=== PATIENT | female | born 1965 | race Caucasian/White ===

== ENCOUNTER 2020-04-03 09:08 | Day surgery (SDC) | payer BC ==
[~2020-04-03] VITALS: Ht 157.5 cm; Wt 63.2 kg
[~2020-04-03 09:08] MED LIST: (None)20 M1; ALBU90OI; CORTIZONE 1028 GM; Camila0.35 MG; D3 DOTS2000 UNIT; IMPOYZ60 GM; OMEG1CAP30; SERT25; TRIA80TC
--- NOTE | 2020-04-03 09:29 | NUR ---
04/03/20 0929 Lucy Goodrich 1ST I.V. ATTEMPT IN RIGHT HAND BY FERMÍN
--- NOTE | 2020-04-03 11:07 | NUR ---
04/03/20 1107 Natasha Shukla LR IV WITH 250LTC AT 1043. IV WAS DISCONTINUED.
== END 2020-04-03 10:50 | disposition home or self-care (01) ==
LOC: ORSCSDS 09:08
PROVIDERS: Internal Medicine Gastroenterology
PROC: 0DBK8ZX Excision of Ascending Colon, Via Natural or Artificial Opening Endoscopic, Diagnostic (ICD-10-PCS; principal; 2020-04-03 10:30)
DX: Z12.11 Encounter for screening for malignant neoplasm of colon (principal); Z86.010 Personal history of colon polyps; Z83.71 Family history of colonic polyps; D12.2 Benign neoplasm of ascending colon; K64.8 Other hemorrhoids; I10 Essential (primary) hypertension; F41.8 Other specified anxiety disorders; Z79.899 Other long term (current) drug therapy
CPT/HCPCS: 88305; A9270; J2704; J7120

== ENCOUNTER → 2020-10-02 | Outpatient (CLI) | payer BC | END | disposition home or self-care (01) | LOC: LAB SHORT 08:00 | DX: L57.0 Actinic keratosis (principal) | CPT/HCPCS: 88305 ==

== ENCOUNTER 2022-12-24 11:24 | Day surgery (SDC) | payer BC ==
[~2022-12-24] VITALS: Ht 157.5 cm; Wt 63.9 kg
[2022-12-24] MEDS ORDERED: ZOLOFT10013 PO (11:44)
[2022-12-24] MEDS ORDERED: ESTRADIOL42.5 GM (11:44)
[2022-12-24] MEDS ORDERED: AMLODIPINE BES2.5 MG PO (11:44)
[2022-12-24 13:21] VITALS: BP 138/88
== END 2022-12-24 13:45 | disposition home or self-care (01) ==
LOC: ORSCSDS 11:24 → ORD 12:30 → ORSCSDS 13:45
PROVIDERS: Obstetrics & Gynecology
PROC: 0UBC7ZX Excision of Cervix, Via Natural or Artificial Opening, Diagnostic (ICD-10-PCS; principal; 2022-12-24 12:30)
PROC: 0UJH7ZZ Inspection of Vagina and Cul-de-sac, Via Natural or Artificial Opening (ICD-10-PCS; principal; 2022-12-24 12:30)
DX: N84.1 Polyp of cervix uteri (principal); N94.2 Vaginismus; I10 Essential (primary) hypertension; F32.A Depression, unspecified; F41.9 Anxiety disorder, unspecified; Z79.899 Other long term (current) drug therapy
CPT/HCPCS: 88305; A9270; J0171; J0330; J1885; J2250; J2704; J2795; J3010; J7120